=== PATIENT | female | born 1945 | race Hispanic/Latino ===

== ENCOUNTER 2017-05-26 14:06 | Outpatient (CLI) | payer MEDICARE | END 2017-05-26 14:07 | disposition home or self-care (01) | LOC: BICMAMMO 14:06 | PROVIDERS: ATTEND Family Medicine | DX: Z12.31 Encounter for screening mammogram for malignant neoplasm of breast (principal); R53.83 Other fatigue; N64.89 Other specified disorders of breast; I70.0 Atherosclerosis of aorta; I77.810 Thoracic aortic ectasia | CPT/HCPCS: 71020; 77063 ==

== ENCOUNTER 2017-06-26 08:00 | Outpatient (CLI) | payer MEDICARE | END 2017-06-26 08:01 | disposition home or self-care (01) | LOC: BICBD 08:00 | PROVIDERS: ATTEND Family Medicine | DX: Z13.820 Encounter for screening for osteoporosis (principal); N63.20 Unspecified lump in the left breast, unspecified quadrant; M81.0 Age-related osteoporosis without current pathological fracture; R92.8 Other abnormal and inconclusive findings on diagnostic imaging of breast | CPT/HCPCS: 77080; G0206; G0279 ==

== ENCOUNTER 2018-12-02 15:49 | Outpatient (CLI) | payer MEDICARE ==
--- NOTE | 2018-12-02 16:33 | RAD ---
2 views right hip: 12/02/2018 COMPARISON: None HISTORY: Fall, trauma FINDINGS: There is mild superior joint space narrowing. There is no evidence for acute fracture or di slocation. Partially imaged lower lumbar spine demonstrate significant facet hypertrophy on the right at the lumbosacral junction. IMPRESSION: No acute osseous abnormality.
--- NOTE | 2018-12-02 16:35 | RAD ---
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 There is prominent de generative change at the first metatarsal-phalangeal joint and second metatarsal phalangeal joint. There is mid foot dorsal degenerative change. No displaced fracture or evidence of dislocation is see n. Corticated irregularity at the base of the fifth metatarsal and at the head of the second metatarsal may signify the sequela of remote trauma. IMPRESSION: Chronic findings as detailed above. No acute fracture or evidence of dislocation.
--- NOTE | 2019-01-05 09:54 | RAD ---
SKULL SERIES 4 VIEWS: HISTORY: Contusion to scalp. FINDINGS: The cranial vault appears intact. The sella turcica appears normal. There appears to be a soft tiss ue laceration in the scalp region. If there has been significant trauma, a head CT is recommended. IMPRESSION: Unremarkable skull series. POS: OFF
== END 2018-12-02 15:50 | disposition home or self-care (01) ==
LOC: BICRAD 15:49
PROVIDERS: ATTEND Family Medicine
DX: S00.03XA Contusion of scalp, initial encounter (principal); M19.071 Primary osteoarthritis, right ankle and foot; W19.XXXA Unspecified fall, initial encounter
CPT/HCPCS: 70260

== ENCOUNTER 2021-01-23 12:50 | Outpatient (CLI) | payer MEDICARE | END 2021-01-23 12:51 | disposition home or self-care (01) | LOC: BICRAD 12:50 | PROVIDERS: ATTEND Family Medicine | DX: M54.5 Low back pain (principal); J45.41 Moderate persistent asthma with (acute) exacerbation; M47.816 Spondylosis without myelopathy or radiculopathy, lumbar region; M41.9 Scoliosis, unspecified; M47.814 Spondylosis without myelopathy or radiculopathy, thoracic region | CPT/HCPCS: 71045; 72072; 72100 ==

== ENCOUNTER 2021-04-11 07:17 | Outpatient (CLI) | payer MEDICARE | END 2021-04-11 07:18 | disposition home or self-care (01) | LOC: BICULT 07:17 | PROVIDERS: ATTEND Internal Medicine Nephrology | DX: E11.22 Type 2 diabetes mellitus with diabetic chronic kidney disease (principal); N18.30 Chronic kidney disease, stage 3 unspecified; M10.9 Gout, unspecified; E78.5 Hyperlipidemia, unspecified; N28.9 Disorder of kidney and ureter, unspecified; I25.10 Atherosclerotic heart disease of native coronary artery without angina pectoris; E66.9 Obesity, unspecified; D63.1 Anemia in chronic kidney disease; M19.90 Unspecified osteoarthritis, unspecified site; J45.909 Unspecified asthma, uncomplicated; K21.9 Gastro-esophageal reflux disease without esophagitis; M54.30 Sciatica, unspecified side; F09 Unspecified mental disorder due to known physiological condition; E55.9 Vitamin D deficiency, unspecified; R76.0 Raised antibody titer; M17.0 Bilateral primary osteoarthritis of knee; N28.1 Cyst of kidney, acquired; K76.0 Fatty (change of) liver, not elsewhere classified | CPT/HCPCS: 76770; 93975 ==

== ENCOUNTER 2021-07-02 08:37 | Outpatient (CLI) | payer MEDICARE | END 2021-07-02 08:38 | disposition home or self-care (01) | LOC: BICMAMMO 08:37 | PROVIDERS: ATTEND Family Medicine | DX: N63.13 Unspecified lump in the right breast, lower outer quadrant (principal) | CPT/HCPCS: 19083; 76642; 77066; G0279; 88305; 88341; 88342 ==

== ENCOUNTER 2021-08-10 07:27 | Day surgery (SDC) | payer MEDICARE ==
[2021-08-07 11:57] VITALS: BMI 28.1
[2021-08-10] MEDS ORDERED: Acetaminophen 500 MG TAB ONE (09:29)
[2021-08-10] MEDS ORDERED: Fentanyl 250 MCG/5 ML VIAL ONE (09:44)
[2021-08-10] MEDS ORDERED: Bupivacaine 0.25% HCL 30 ML VIAL ONE (09:56)
[2021-08-10] MEDS ORDERED: Isosulfan Blue 50 MG/5 ML VIAL ONE (09:56)
[2021-08-10] MEDS ORDERED: Xylocaine 1% w/ Epi 1:100K 10 ML VIAL ONE (09:56)
[2021-08-10] MEDS ORDERED: ceFAZolin 2 GM/DEX 5% 100 ML BAG ONE (10:06)
[2021-08-10] MEDS ORDERED: Albuterol Sulfate HFA (OR ONLY) ONE (10:07)
[2021-08-10] MEDS ORDERED: PHENYLEPHRINE-NS 100 MCG/ML 10 ML SYRINGE ONE (10:20)
[2021-08-10] MEDS ORDERED: Dexamethasone 20 MG/5 ML VIAL ONE (10:20)
[2021-08-10] MEDS ORDERED: ePHEDrine 50 MG/ML VIAL ONE (10:20)
[2021-08-10] MEDS ORDERED: Lidocaine 1% PF 5 ML VIAL ONE (10:20)
[2021-08-10] MEDS ORDERED: Ondansetron PF 4 MG/2 ML Vial ONE (10:20)
[2021-08-10] MEDS ORDERED: PROPOFOL 200 MG/20 ML VIAL ONE (10:20)
[2021-08-10] MEDS ORDERED: HYDROcodone/Acetaminophen 5/325 mg Tablet ONE (14:16)
== END 2021-08-10 15:05 | disposition home or self-care (01) ==
LOC: SDC 07:27
PROVIDERS: ATTEND Surgery
PROC: 0HBT0ZZ Excision of Right Breast, Open Approach (ICD-10-PCS; principal; 2021-08-10)
PROC: 07B50ZX Excision of Right Axillary Lymphatic, Open Approach, Diagnostic (ICD-10-PCS; 2021-08-10)
DX: C50.811 Malignant neoplasm of overlapping sites of right female breast (principal); C77.3 Secondary and unspecified malignant neoplasm of axilla and upper limb lymph nodes; E11.9 Type 2 diabetes mellitus without complications; I10 Essential (primary) hypertension; M10.9 Gout, unspecified; M19.90 Unspecified osteoarthritis, unspecified site; J45.909 Unspecified asthma, uncomplicated; E07.9 Disorder of thyroid, unspecified; M81.0 Age-related osteoporosis without current pathological fracture; Z17.0 Estrogen receptor positive status [ER+]; Z78.9 Other specified health status; Z79.84 Long term (current) use of oral hypoglycemic drugs; Z79.899 Other long term (current) drug therapy
CPT/HCPCS: 19301; 38525; 38900; 76098; 78195; A9541; C1776; Q9968; 88307; 88342; J1100; J2405; J2704; J3010; J3490; S0020

== ENCOUNTER 2022-05-30 14:52 | Outpatient (CLI) | payer OTHER | END 2022-05-30 14:53 | disposition home or self-care (01) | LOC: BICULT 14:52 | PROVIDERS: ATTEND Internal Medicine Nephrology | DX: E11.22 Type 2 diabetes mellitus with diabetic chronic kidney disease (principal); N18.30 Chronic kidney disease, stage 3 unspecified; D63.1 Anemia in chronic kidney disease; E78.5 Hyperlipidemia, unspecified; N28.9 Disorder of kidney and ureter, unspecified; I25.10 Atherosclerotic heart disease of native coronary artery without angina pectoris; E66.9 Obesity, unspecified; M19.90 Unspecified osteoarthritis, unspecified site; J45.909 Unspecified asthma, uncomplicated; K21.9 Gastro-esophageal reflux disease without esophagitis; M54.30 Sciatica, unspecified side; F09 Unspecified mental disorder due to known physiological condition; E55.9 Vitamin D deficiency, unspecified; M10.9 Gout, unspecified; R76.0 Raised antibody titer; N28.1 Cyst of kidney, acquired; K76.0 Fatty (change of) liver, not elsewhere classified | CPT/HCPCS: 76770 ==

== ENCOUNTER 2022-07-03 09:53 | Outpatient (CLI) | payer OTHER | END 2022-07-03 09:54 | disposition home or self-care (01) | LOC: BICMAMMO 09:53 | PROVIDERS: ATTEND Surgery | DX: Z08 Encounter for follow-up examination after completed treatment for malignant neoplasm (principal); Z85.3 Personal history of malignant neoplasm of breast | CPT/HCPCS: 77066; G0279 ==

== ENCOUNTER 2022-10-10 07:52 | Outpatient (CLI) | payer OTHER | END 2022-10-10 07:53 | disposition home or self-care (01) | LOC: BICMAMMO 07:52 | PROVIDERS: ATTEND Internal Medicine Hematology & Oncology | DX: T38.6X5A Adverse effect of antigonadotrophins, antiestrogens, antiandrogens, not elsewhere classified, initial encounter (principal); M85.80 Other specified disorders of bone density and structure, unspecified site | CPT/HCPCS: 77080 ==

== ENCOUNTER 2023-09-03 08:25 | Outpatient (CLI) | payer OTHER | END 2023-09-03 08:26 | disposition home or self-care (01) | LOC: BICMAMMO 08:25 | PROVIDERS: ATTEND Family Medicine | DX: Z08 Encounter for follow-up examination after completed treatment for malignant neoplasm (principal); M85.89 Other specified disorders of bone density and structure, multiple sites; Z85.3 Personal history of malignant neoplasm of breast | CPT/HCPCS: 77066; 77080; G0279 ==

== ENCOUNTER 2024-04-23 10:14 | Outpatient (CLI) | payer OTHER | END 2024-04-23 10:15 | disposition home or self-care (01) | LOC: BICRAD 10:14 | PROVIDERS: ATTEND Internal Medicine Hematology & Oncology | DX: C50.111 Malignant neoplasm of central portion of right female breast (principal); M47.816 Spondylosis without myelopathy or radiculopathy, lumbar region; M16.11 Unilateral primary osteoarthritis, right hip; M89.8X5 Other specified disorders of bone, thigh | CPT/HCPCS: 72170 ==

== ENCOUNTER 2025-02-13 20:15 | Inpatient (IN) | payer OTHER ==
[~2025-02-13 20:15] MED LIST: Iopamidol 370 76% 100 ML VIAL ONE
[2025-02-13 20:50] LABS: #Basophils 0.06 10x3/uL (0.0-0.2); #Eosinophils 0.18 10x3/uL (0.0-0.7); #Monocytes 1.31 10x3/uL (0.11-0.59); #Neutrophils 10.05 10x3/uL (1.40-6.50); %Basophils 0.5 % (0.0-1.0); %Eosinophils 1.4 % (0.0-10.0); %Lymphocytes 10.4 % (21.0-51.0); %Monocytes 10.1 % (0.0-10.0); %Neutrophils 77.1 % (42.0-75.0); Hematocrit 40.3 % (36.0-47.0); Hemoglobin 13.9 g/dL (12.0-16.0); Mean Corpuscular Hemoglobin 32.4 pg (27.0-31.0); Mean Corpuscular Volume 93.9 fL (78.0-98.0); Platelet Count 233 10x3/uL (130-400); Red Blood Cell (RBC) Count 4.29 mill/uL (4.20-5.40); White Blood Cell (WBC) Count 13.02 10x3/uL (4.8-10.8)
[2025-02-13 20:59] LABS: ALT (SGPT) 11 U/L (Less than 34); AST (SGOT) 50 U/L (11-34); Albumin 4.3 g/dL (3.1-4.5); Alkaline Phosphatase 166 U/L (40-110); Anion Gap 17 mmol/L (10-20); BUN (Urea Nitrogen) 32 mg/dL (9.8-20.1); Bilirubin, Total 0.8 mg/dL (0.3-1.2); Calc. Creatinine Clearance 0 mL/min (70-130); Calcium 9.8 mg/dL (7.8-10.44); Carbon Dioxide 22 mmol/L (23-31); Chloride 110 mmol/L (98-107); Globulin 3.3 g/dL (2.4-3.5); Glucose 146 mg/dL (83-110); Potassium 3.3 mmol/L (3.5-5.1); Sodium 146 mmol/L (136-145)
[2025-02-13 21:08] LABS: Bacteria/HPF None Seen HPF (None Seen); CAUTI Indications for Culture Dysuria,urgency,freq; Glucose, Urine (Dipstick) Normal (Negative); Leukocyte 75 Leu/uL (Negative); Protein, Urine (Dipstick) 20 mg/dL (Neg-Trace); RBC/HPF 0-3 HPF (0-3); Specific Gravity, Urine 1.030 (1.002-1.036)
[2025-02-13 21:09] LABS: Urine Culture Reflex No No
[2025-02-13 22:24] LABS: INR-International Normal Ratio 1.2; PTT 31.0 sec (22.9-36.1); Prothrombin Time 15.0 sec (12.0-14.7)
[2025-02-13 22:27] LABS: CK (CPK) 969 U/L (29-168); Magnesium 2.1 mg/dL (1.6-2.6)
[2025-02-13] MEDS ORDERED: Dextrose 50% Abboject 50 ML SYRINGE SLOW IVP PRN (23:10)
[2025-02-13] MEDS ORDERED: hydrALAZINE 20 MG/ML VIAL SLOW IVP PRN (23:10)
[2025-02-13] MEDS ORDERED: Glucagon 1 MG/ML KIT IM PRN (23:10)
[2025-02-14 00:52] LABS: Actual Bicarbonate (HCO3v) 21.1 mEq/L (22-28); Base Excess -3.4 mEq/L (-2.0 to +3.0); Calcium, Ionized (venous) 1.11 mmol/L (1.16-1.32); Chloride (VBG) 106 mmol/L (98-106); Hematocrit-VBG 40 % (36.0-47.0); Hemoglobin (Hb) 13.7 g/dL (11.7-16.1); Potassium (VBG) 3.45 mmol/L (3.70-5.30); Sodium 139 mmol/L (133-146)
[2025-02-14 03:42] VITALS: BMI 25.1
[2025-02-14 08:29] LABS: #Basophils 0.05 10x3/uL (0.0-0.2); #Eosinophils 0.44 10x3/uL (0.0-0.7); #Monocytes 1.22 10x3/uL (0.11-0.59); #Neutrophils 8.59 10x3/uL (1.40-6.50); %Basophils 0.4 % (0.0-1.0); %Eosinophils 3.8 % (0.0-10.0); %Lymphocytes 10.2 % (21.0-51.0); %Monocytes 10.6 % (0.0-10.0); %Neutrophils 74.7 % (42.0-75.0); Hematocrit 37.8 % (36.0-47.0); Hemoglobin 12.3 g/dL (12.0-16.0); Mean Corpuscular Hemoglobin 31.8 pg (27.0-31.0); Mean Corpuscular Volume 97.7 fL (78.0-98.0); Platelet Count 214 10x3/uL (130-400); Red Blood Cell (RBC) Count 3.87 mill/uL (4.20-5.40); White Blood Cell (WBC) Count 11.52 10x3/uL (4.8-10.8)
[2025-02-14 08:43] LABS: Anion Gap 12 mmol/L (10-20); BUN (Urea Nitrogen) 23 mg/dL (9.8-20.1); Calc. Creatinine Clearance 85 mL/min (70-130); Calcium 8.8 mg/dL (7.8-10.44); Carbon Dioxide 21 mmol/L (23-31); Chloride 111 mmol/L (98-107); Glucose 137 mg/dL (83-110); Potassium 3.4 mmol/L (3.5-5.1); Sodium 141 mmol/L (136-145)
[2025-02-14] MEDS ORDERED: CEFAZOLIN 2 GM VIAL ONE (11:16)
[2025-02-14] MEDS ORDERED: Famotidine/PF 20 mg/2ml Vial ONE (11:35)
[2025-02-14] MEDS ORDERED: PROPOFOL 20 ML ONE (11:53)
[2025-02-14] MEDS ORDERED: Rocuronium Bromide 10 MG/ML (10ML VIAL) ONE (11:56)
[2025-02-14] MEDS ORDERED: Ketorolac Tromethamine 30 MG (1 mL) VIAL ONE (12:32)
[2025-02-14] MEDS ORDERED: Ondansetron PF 4 MG/2 ML Vial ONE (12:32)
[2025-02-14] MEDS ORDERED: SUGAMMADEX SODIUM 200 MG/2 ML VIAL ONE (12:36)
[2025-02-14] MEDS ORDERED: HYDROmorphone 0.5 MG/0.5 ML SYR SLOW IVP PRN (14:24)
[2025-02-14] MEDS ORDERED: Electrolyte Replacement Protocol 1 EACH FS PRN (17:55)
[2025-02-14] MEDS: Methocarbamol 500 MG TAB PO SCH (18:37)
[2025-02-15] MEDS: Ondansetron PF 4 MG/2 ML Vial IVP PRN (04:40)
[2025-02-15] MEDS: Acetaminophen 325 MG TAB PO PRN (04:40)
[2025-02-15 06:01] LABS: #Basophils 0.06 10x3/uL (0.0-0.2); #Eosinophils 0.12 10x3/uL (0.0-0.7); #Monocytes 1.73 10x3/uL (0.11-0.59); #Neutrophils 8.29 10x3/uL (1.40-6.50); %Basophils 0.5 % (0.0-1.0); %Eosinophils 1.0 % (0.0-10.0); %Lymphocytes 13.7 % (21.0-51.0); %Monocytes 14.6 % (0.0-10.0); %Neutrophils 69.8 % (42.0-75.0); Hematocrit 34.2 % (36.0-47.0); Hemoglobin 11.1 g/dL (12.0-16.0); Mean Corpuscular Hemoglobin 32.3 pg (27.0-31.0); Mean Corpuscular Volume 99.4 fL (78.0-98.0); Platelet Count 202 10x3/uL (130-400); Red Blood Cell (RBC) Count 3.44 mill/uL (4.20-5.40); White Blood Cell (WBC) Count 11.88 10x3/uL (4.8-10.8)
[2025-02-15 06:10] LABS: Anion Gap 13 mmol/L (10-20); BUN (Urea Nitrogen) 21 mg/dL (9.8-20.1); Calc. Creatinine Clearance 71 mL/min (70-130); Calcium 8.5 mg/dL (7.8-10.44); Carbon Dioxide 22 mmol/L (23-31); Chloride 109 mmol/L (98-107); Glucose 109 mg/dL (83-110); Potassium 4.1 mmol/L (3.5-5.1); Sodium 140 mmol/L (136-145)
[2025-02-15] MEDS: Aspirin Chewable 81 MG TAB PO SCH (08:13)
[2025-02-15] MEDS ORDERED: Aspirin Chewable 81 MG TAB PO SCH (09:00)
[2025-02-16 07:11] LABS: #Basophils 0.04 10x3/uL (0.0-0.2); #Eosinophils 0.37 10x3/uL (0.0-0.7); #Monocytes 0.99 10x3/uL (0.11-0.59); #Neutrophils 8.03 10x3/uL (1.40-6.50); %Basophils 0.4 % (0.0-1.0); %Eosinophils 3.5 % (0.0-10.0); %Lymphocytes 11.1 % (21.0-51.0); %Monocytes 9.3 % (0.0-10.0); %Neutrophils 75.0 % (42.0-75.0); Hematocrit 30.1 % (36.0-47.0); Hemoglobin 9.7 g/dL (12.0-16.0); Mean Corpuscular Hemoglobin 32.0 pg (27.0-31.0); Mean Corpuscular Volume 99.3 fL (78.0-98.0); Platelet Count 195 10x3/uL (130-400); Red Blood Cell (RBC) Count 3.03 mill/uL (4.20-5.40); White Blood Cell (WBC) Count 10.69 10x3/uL (4.8-10.8)
[2025-02-16 07:28] LABS: Anion Gap 12 mmol/L (10-20); BUN (Urea Nitrogen) 19 mg/dL (9.8-20.1); Calc. Creatinine Clearance 76 mL/min (70-130); Calcium 8.4 mg/dL (7.8-10.44); Carbon Dioxide 23 mmol/L (23-31); Chloride 106 mmol/L (98-107); Glucose 164 mg/dL (83-110); Potassium 3.8 mmol/L (3.5-5.1); Sodium 137 mmol/L (136-145)
[2025-02-16] MEDS ORDERED: Letrozole 2.5 MG TAB PO SCH (14:30)
[2025-02-16] MEDS: diphenhydrAMINE 50 MG/ML VIAL IVP SCH (19:56)
[2025-02-16] MEDS ORDERED: Glucagon 1 MG/ML KIT IM PRN (20:14)
[2025-02-16] MEDS ORDERED: Dextrose 50% Abboject 50 ML SYRINGE SLOW IVP PRN (20:14)
[2025-02-16] MEDS: Senokot S 8.6-50 MG TAB PO SCH (22:19)
[2025-02-16] MEDS: Allopurinol 100 MG TAB PO SCH (22:19)
[2025-02-16] MEDS: Letrozole 2.5 MG TAB PO SCH (22:19)
[2025-02-16] MEDS: DorzolamidE/Timolol 2%/0.5% Ophth Soln 10 ml Bottle EA EYE SCH (22:20)
[2025-02-17] MEDS: diphenhydrAMINE 25 MG CAP PO PRN (04:08)
[2025-02-17] MEDS: Ketorolac Tromethamine 30 MG (1 mL) VIAL IVP SCH (04:08)
[2025-02-17] MEDS: Gabapentin 300 MG CAP PO SCH (08:14)
[2025-02-17] MEDS ORDERED: Letrozole 2.5 MG TAB PO SCH (09:00)
[2025-02-17 09:12] LABS: Anion Gap 5 mmol/L (10-20); BUN (Urea Nitrogen) 17 mg/dL (9.8-20.1); Calc. Creatinine Clearance 72 mL/min (70-130); Calcium 8.1 mg/dL (7.8-10.44); Carbon Dioxide 24 mmol/L (23-31); Chloride 113 mmol/L (98-107); Glucose 117 mg/dL (83-110); Potassium 3.7 mmol/L (3.5-5.1); Sodium 138 mmol/L (136-145)
[2025-02-17 09:20] LABS: #Basophils 0.05 10x3/uL (0.0-0.2); #Eosinophils 0.61 10x3/uL (0.0-0.7); #Monocytes 0.92 10x3/uL (0.11-0.59); #Neutrophils 5.17 10x3/uL (1.40-6.50); %Basophils 0.6 % (0.0-1.0); %Eosinophils 7.2 % (0.0-10.0); %Lymphocytes 19.8 % (21.0-51.0); %Monocytes 10.8 % (0.0-10.0); %Neutrophils 61.0 % (42.0-75.0); Hematocrit 25.3 % (36.0-47.0); Hemoglobin 8.3 g/dL (12.0-16.0); Mean Corpuscular Hemoglobin 32.8 pg (27.0-31.0); Mean Corpuscular Volume 100.0 fL (78.0-98.0); Platelet Count 195 10x3/uL (130-400); Red Blood Cell (RBC) Count 2.53 mill/uL (4.20-5.40); White Blood Cell (WBC) Count 8.48 10x3/uL (4.8-10.8)
[2025-02-17] MEDS: Sodium Ferric Gluconate 250 MG in Sodium Chloride 0.9% 250 ML 250 ML IVPB SCH (14:28)
[2025-02-17] MEDS: Calcium Carbonate 600 MG + Vit D TAB PO SCH (18:10)
[2025-02-17] MEDS: Multivit, Therapeutic 1 TAB PO SCH (21:56)
[2025-02-17] MEDS: Folic Acid 1 MG TAB PO SCH (21:56)
[2025-02-17] MEDS: Cyanocobalamin (Vitamin B-12) 1,000 MCG TAB PO SCH (21:56)
[2025-02-18 06:12] LABS: #Basophils 0.08 10x3/uL (0.0-0.2); #Eosinophils 0.49 10x3/uL (0.0-0.7); #Monocytes 0.97 10x3/uL (0.11-0.59); #Neutrophils 6.62 10x3/uL (1.40-6.50); %Basophils 0.8 % (0.0-1.0); %Eosinophils 5.0 % (0.0-10.0); %Lymphocytes 16.0 % (21.0-51.0); %Monocytes 9.9 % (0.0-10.0); %Neutrophils 67.5 % (42.0-75.0); Hematocrit 28.9 % (36.0-47.0); Hemoglobin 9.2 g/dL (12.0-16.0); Mean Corpuscular Hemoglobin 31.8 pg (27.0-31.0); Mean Corpuscular Volume 100.0 fL (78.0-98.0); Platelet Count 223 10x3/uL (130-400); Red Blood Cell (RBC) Count 2.89 mill/uL (4.20-5.40); White Blood Cell (WBC) Count 9.81 10x3/uL (4.8-10.8)
[2025-02-18 06:39] LABS: Anion Gap 14 mmol/L (10-20); BUN (Urea Nitrogen) 21 mg/dL (9.8-20.1); CK (CPK) 471 U/L (29-168); Calc. Creatinine Clearance 75 mL/min (70-130); Calcium 8.7 mg/dL (7.8-10.44); Carbon Dioxide 20 mmol/L (23-31); Chloride 107 mmol/L (98-107); Glucose 119 mg/dL (83-110); Potassium 4.8 mmol/L (3.5-5.1); Sodium 136 mmol/L (136-145)
[2025-02-18] MEDS ORDERED: Hydrocortisone 2.5%/Pramoxine 1% CRM 30 GM TUBE TOP SCH (15:00)
[2025-02-18 15:25] VITALS: BP 127/77; TEMP 97.4
== END 2025-02-18 04:50 | DRG 522 ==
LOC: ERS 20:15 → SURG B 23:22
PROVIDERS: ADMIT Surgery Trauma Surgery; ATTEND Surgery Trauma Surgery
PROC: 0SRS0JA Replacement of Left Hip Joint, Femoral Surface with Synthetic Substitute, Uncemented, Open Approach (ICD-10-PCS; principal; 2025-02-13)
PROC: 3E03329 Introduction of Other Anti-infective into Peripheral Vein, Percutaneous Approach (ICD-10-PCS; 2025-02-13)
DX: S72.002A Fracture of unspecified part of neck of left femur, initial encounter for closed fracture (principal); D62 Acute posthemorrhagic anemia; E87.20 Acidosis, unspecified; E11.9 Type 2 diabetes mellitus without complications; E86.0 Dehydration; I10 Essential (primary) hypertension; M10.9 Gout, unspecified; M16.12 Unilateral primary osteoarthritis, left hip; M81.0 Age-related osteoporosis without current pathological fracture; W19.XXXA Unspecified fall, initial encounter; Z98.890 Other specified postprocedural states; Z85.3 Personal history of malignant neoplasm of breast
CPT/HCPCS: 36415; 36416; 70450; 71045; 71260; 72125; 72170; 74177; 80048; 80053; 81001; 82550; 82805; 83605; 83735; 83880; 84443; 84484; 85025; 85610; 85730; 93970; 96361; 96374; C1713; C1776; C1889; G0390; J1100; J1200; J1308; J1885; J2270; J2405; J2704; J2916; J3010; J7030; J7050; Q9967

== ENCOUNTER 2025-03-02 11:14 | Outpatient (CLI) | payer MEDICARE | END 2025-03-02 11:15 | disposition home or self-care (01) | LOC: BICRAD 11:14 | PROVIDERS: ATTEND Orthopaedic Surgery | DX: S72.002A Fracture of unspecified part of neck of left femur, initial encounter for closed fracture (principal); Z96.642 Presence of left artificial hip joint ==